=== PATIENT | male | born 2005 | race African-American/Black ===

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

== ENCOUNTER 2025-03-29 15:39 | Emergency (ER) | payer OTHER ==
[2025-03-29] MEDS ORDERED: Ketorolac Tromethamine 30 MG (1 mL) VIAL ONE (16:01)
[2025-03-29 16:10] LABS: Hematocrit 39.4 % (42.0-52.0); Hemoglobin 13.5 g/dL (14.0-18.0); Mean Corpuscular Hemoglobin 28.7 pg (27.0-31.0); Mean Corpuscular Volume 84.0 fl (78.0-98.0); Platelet Count 269 10x3/uL (130-400); Red Blood Cell (RBC) Count 4.69 mill/uL (4.70-6.10); White Blood Cell (WBC) Count 4.3 10x3/uL (4.8-10.8)
[2025-03-29] MEDS ORDERED: Ondansetron PF 4 MG/2 ML Vial ONE (16:12)
[2025-03-29 16:26] LABS: ALT (SGPT) 30 U/L (Less than 45); AST (SGOT) 45 U/L (11-34); Albumin 3.3 g/dL (3.1-4.5); Alkaline Phosphatase 58 U/L (40-110); Anion Gap 14 mmol/L (10-20); BUN (Urea Nitrogen) 8 mg/dL (8.9-20.6); Bilirubin, Total 1.1 mg/dL (0.3-1.2); CK (CPK) 349 U/L (30-200); Calc. Creatinine Clearance 0 mL/min (70-130); Calcium 8.3 mg/dL (7.8-10.44); Carbon Dioxide 24 mmol/L (22-29); Chloride 105 mmol/L (98-107); Globulin 3.4 g/dL (2.4-3.5); Glucose 79 mg/dL (70-105); Potassium 3.3 mmol/L (3.5-5.1); Sodium 140 mmol/L (136-145)
[2025-03-29 16:32] LABS: Troponin I 1.649 ng/mL (< 0.028)
[2025-03-29 16:39] LABS: MDiff Complete? YES
[2025-03-29 16:53] LABS: Glucose, Urine (Dipstick) Negative (Negative); Leukocyte Negative (Negative); Protein, Urine (Dipstick) Trace mg/dL (Neg-Trace); Specific Gravity, Urine 1.020 (1.005-1.030)
[2025-03-29 17:01] LABS: CAUTI Indications for Culture Dysuria,urgency,freq; RBC/HPF 0-3 HPF (0-3); WBC/HPF 0-3 HPF (0-3)
[2025-03-29 17:02] LABS: Bacteria/HPF Rare-Few HPF (None Seen); Mucous/LPF Rare LPF (<2+)
[2025-03-29 17:03] LABS: Urine Culture Reflex No No
[2025-03-29 17:12] LABS: Cocaine Metabolite Screen Negative (Negative); THC/Cannabinoid Screen PRELIM POSITIVE (Negative); Tricyclic Screen Negative (Negative)
[2025-03-29 17:13] LABS: Acetaminophen Less than 10 mcg/mL (Less than 10); Salicylate Less than 8.0 mg/dL (Less than 8.0)
== END 2025-03-29 18:43 | disposition short-term general hospital (02) ==
LOC: BURERS 15:39
DX: R07.9 Chest pain, unspecified (principal)
CPT/HCPCS: 71046; 80053; 80306; 80307; 81001; 82550; 83880; 84484; 85025; 93005; 94760; 96374; 96375; J1885; J2405